=== PATIENT | male | born 1960 | race Caucasian/White ===

== ENCOUNTER 2017-06-12 10:28 | Emergency (ER) | payer BC ==
[2017-06-12 10:28] VITALS: TEMP 96.1
[2017-06-12 10:43] VITALS: BP 000/00; PULSE 0
== END 2017-06-12 16:24 | disposition expired ==
LOC: COL.ER 10:30 → EDBD 10:35 → COL.ER 10:35
DX: I46.9 Cardiac arrest, cause unspecified (principal)
CPT/HCPCS: J0171; J0461